=== PATIENT | female | born 1940 | race Caucasian/White ===

== ENCOUNTER 2016-11-15 10:18 | Emergency (ER) | payer OTHER ==
[~2016-11-15] VITALS: Ht 139.7 cm; Wt 48.5 kg
[2016-11-15 10:35] VITALS: BP 182/74
[2016-11-15] MEDS ORDERED: NACL 0.9% 1,000 ML IV SCH (13:03)
[2016-11-15] MEDS ORDERED: FAMOTIDINE 20 MG/2 ML VIAL IVP ONE (13:05)
[2016-11-15] MEDS ORDERED: ONDANSETRON 4 MG/2 ML VIAL IVP ONE (13:05)
[2016-11-15 13:28] LABS: BASOPHILS # (AUTO) 0.1 K/uL (0.00-0.22); BASOPHILS % (AUTO) 1.4 % (0.0-2.0); EOSINOPHILS # (AUTO) 0.2 K/uL (0-0.4); EOSINOPHILS % (AUTO) 3.5 % (0.0-4.0); HEMATOCRIT 38.8 % (36-48); LYMPHOCYTES # (AUTO) 2.3 K/uL (2.5-16.5); MEAN CORPUSCULAR HEMOGLOBIN 30 pg (27-31); MEAN CORPUSCULAR HGB CONC 34 g/dL (33-37); MEAN CORPUSCULAR VOLUME 90 fL (80-94); MONOCYTES # (AUTO) 0.7 K/uL (0.8-1.0); MONOCYTES % (AUTO) 11.3 % (1.7-9.3); NEUTROPHILS # (AUTO) 3.2 K/uL (1.8-7.7); NEUTROPHILS % (AUTO) 48.8 % (42.2-75.2); PLATELET COUNT (AUTO) 217 K/uL (140-450); RED BLOOD CELL COUNT(AUTO) 4.31 MIL/uL (4.20-5.40); RED CELL DISTRIBUTION WIDTH 13.1 % (11.6-13.7); WHITE BLOOD COUNT (AUTO) 6.5 K/uL (4.8-10.8)
[2016-11-15 13:46] LABS: ALANINE AMINOTRANSFERASE 103 U/L (12-78); ALBUMIN 3.7 g/dL (3.4-5.0); ALKALINE PHOSPHATASE 108 U/L (46-116); AMYLASE 63 U/L (25-115); ANION GAP 11.9 (8-16); ASPARTATE AMINOTRANSFERASE 87 U/L (15-37); CALCIUM 8.6 mg/dL (8.5-10.1); CARBON DIOXIDE 26.9 mmol/L (21-32); CHLORIDE 104 mmol/L (98-107); CREATININE 0.8 mg/dL (0.6-1.3); GLUCOSE 102 mg/dL (74-106); LIPASE 214 U/L (73-393); POTASSIUM 3.8 mmol/L (3.5-5.1); SODIUM SERUM 139 mmol/L (136-145); TOTAL BILIRUBIN 0.7 mg/dL (0.0-1.0); TOTAL PROTEIN, SERUM 7.6 g/dL (6.4-8.2); UREA NITROGEN, BLOOD 8 mg/dL (7-18)
[2016-11-15] MEDS ORDERED: NACL 0.9% 500 ML IV ONE (15:45)
--- NOTE | 2016-11-15 15:45 | NUR ---
PATIENT PRESENTS TO ED WITH VOMITING X2 DAYS WITH DIARRHEA AND LOSS OF APPETITE; SKIN IS PINK/WARM/DRY; AAOX4 WITH EVEN AND STEADY GAIT; LUNGS CLEAR BL; HR EVEN AND REGULAR; PT DENIES ANY FEVER, CP, SOB, OR COUGH AT THIS TIME; PATIENT STATES PAIN OF 5/10 AT THIS TIME; VSS; PATIENT POSITIONED FOR COMFORT; HOB ELEVATED; BEDRAILS UP X2; BED DOWN. ER MD MADE AWARE OF PT STATUS.
[2016-11-15] MEDS ORDERED: FAMOTIDINE 20 MG/2 ML VIAL ONE (16:20)
[2016-11-15] MEDS ORDERED: ONDANSETRON 4 MG/2 ML VIAL ONE (16:20)
[2016-11-15 17:43] LABS: APPEARANCE,URINE CLEAR (CLEAR); BILIRUBIN,URINE NEGATIVE (NEGATIVE); BLOOD, URINE NEGATIVE (NEGATIVE); COLOR,URINE YELLOW (YELLOW); LEUKOCYTE ESTERASE ,URINE TRACE (NEGATIVE); NITRITE, URINE NEGATIVE (NEGATIVE); PH,URINE 6.5 (5.0-9.0); PROTEIN,URINE NEGATIVE (NEGATIVE); UGLUCOSE NEGATIVE (NEGATIVE); UROBILINOGEN,URINE 0.2 EU/dL (0.2 - 1)
[2016-11-15 18:01] LABS: BACTERIA,URINE RARE /HPF (None Seen); RBC,URINE NONE SEEN /HPF (0-5); SQUAMOUS EPITHELIAL CELL,UR None Seen /LPF (0-3 (FEW)); WBC,URINE 0-5 (RARE) /HPF (0-5)
--- NOTE | 2016-11-15 18:09 | NUR ---
BACK FACER BILL AT BEDSIDE TAKING CHEST XRAY
--- NOTE | 2016-11-15 18:14 | NUR ---
ANGUILLAN SPEAKING PT AMBULATES TO THE RESTROOM ACCOMPANIED BY
--- NOTE | 2016-11-15 18:32 | NUR ---
Dr. Campo evaluating patient at bedside.
[2016-11-15 18:49] VITALS: BP 139/70
--- NOTE | 2016-11-15 18:49 | NUR ---
Patient discharged with v/s stable. Written and verbal after care instructions given and explained. Patient alert, oriented and verbalized understanding of instructions. Ambulatory with steady gait. All questions addressed prior to discharge. ID band removed. Patient advised to follow up with PMD. Rx of [employer] DISPOSABLE RECTAL ENEMA, ZOFRAN, COLACE given. Patient educated on indication of medication including possible reaction and side effects. Opportunity to ask questions provided and answered.
== END 2016-11-15 18:49 | disposition home or self-care (01) ==
LOC: MED 10:18
DX: K59.00 Constipation, unspecified (principal); R11.2 Nausea with vomiting, unspecified; R63.0 Anorexia; K21.9 Gastro-esophageal reflux disease without esophagitis; I10 Essential (primary) hypertension; E78.00 Pure hypercholesterolemia, unspecified
CPT/HCPCS: 36415; 74000; 80053; 81001; 82150; 83690; 85025; 96361; 96374; 96375; 99285; J2405; J3490; J7030; Q0092

== ENCOUNTER 2017-11-12 20:38 | Inpatient (IN) | payer OTHER ==
[~2017-11-12] VITALS: Ht 144.8 cm; Wt 46.7 kg
[2017-11-12 20:42] VITALS: BP 156/80
[2017-11-12] MEDS ORDERED: NITROGLYCERIN 2% 1 GM PKT TP ONE (21:35)
[2017-11-12] MEDS ORDERED: ASPIRIN 81 MG TAB.CHEW PO ONE (21:35)
[2017-11-12] MEDS ORDERED: MORPHINE SULFATE 4 MG/ML SYR IVP ONE (21:35)
[2017-11-12 22:00] LABS: BASOPHILS % (AUTO) 0.2 % (0.0-2.0); EOSINOPHILS # (AUTO) 0.1 K/uL (0-0.4); HEMATOCRIT 36.8 % (36-48); HEMOGLOBIN 12.9 g/dL (12.0-16.0); LYMPHOCYTES # (AUTO) 2.2 K/uL (2.5-16.5); LYMPHOCYTES % (AUTO) 23.3 % (20.5-51.1); MEAN CORPUSCULAR HEMOGLOBIN 30 pg (27-31); MEAN CORPUSCULAR HGB CONC 35 g/dL (33-37); MEAN CORPUSCULAR VOLUME 86.3 fL (80-94); MONOCYTES # (AUTO) 0.6 K/uL (0.8-1.0); MONOCYTES % (AUTO) 6.5 % (1.7-9.3); NEUTROPHILS # (AUTO) 6.5 K/uL (1.8-7.7); PLATELET COUNT (AUTO) 240 K/uL (140-450); RED BLOOD CELL COUNT(AUTO) 4.27 MIL/uL (4.20-5.40); RED CELL DISTRIBUTION WIDTH 13.1 % (11.6-13.7); WHITE BLOOD COUNT (AUTO) 9.4 K/uL (4.8-10.8)
[2017-11-12 22:07] LABS: ANION GAP 14.9 (8-16); CARBON DIOXIDE 25.7 mmol/L (21-32); CHLORIDE 91 mmol/L (98-107); CREATININE 0.8 mg/dL (0.6-1.3); GLUCOSE 168 mg/dL (74-106); POTASSIUM 3.6 mmol/L (3.5-5.1); SODIUM SERUM 128 mmol/L (136-145); UREA NITROGEN, BLOOD 10 mg/dL (7-18)
[2017-11-12 22:12] LABS: CHOL/HDL RATIO 4.3 (1-4.5)
[2017-11-12 22:13] LABS: ALBUMIN 3.9 g/dL (3.4-5.0); ASPARTATE AMINOTRANSFERASE 37 U/L (15-37); TOTAL BILIRUBIN 0.9 mg/dL (0.0-1.0)
[2017-11-12 22:26] LABS: CREATINE KINASE MB 1.1 ng/mL (0-3.6)
[2017-11-12] MEDS ORDERED: ONDANSETRON 4 MG/2 ML VIAL IVP PRN (23:55)
[2017-11-12] MEDS ORDERED: ACETAMINOPHEN 325 MG TAB PO PRN (23:55)
[2017-11-12] MEDS ORDERED: HYDROcodone/APAP 7.5/325 MG 1 TAB PO PRN (23:55)
[2017-11-13] MEDS ORDERED: NACL 0.9% 1,000 ML IV ONE
[2017-11-13] MEDS ORDERED: AMLO10TA PO (00:14)
[2017-11-13] MEDS ORDERED: HCTZ PO (00:14)
[2017-11-13] MEDS ORDERED: METF500T2 PO (00:14)
[2017-11-13] MEDS ORDERED: METO25TE2 PO (00:14)
[2017-11-13] MEDS ORDERED: BENAZEP PO (00:14)
[2017-11-13] MEDS ORDERED: ATOR40TA PO (00:14)
[2017-11-13] MEDS ORDERED: ATA10 PO (00:14)
[2017-11-13 00:38] LABS: PROTHROMBIN TIME 10.5 secs (10.8-13.4)
[2017-11-13 00:43] LABS: FREE T4 (FREE THYROXINE) 1.09 ng/dL (0.76-1.46); MAGNESIUM 1.7 mg/dL (1.8-2.4); PHOSPHORUS 3.5 mg/dL (2.5-4.9); THYROID STIMULATING HORMONE 0.76 uIU/mL (0.34-3.74)
[2017-11-13 00:55] VITALS: BP 153/71
[2017-11-13] MEDS ORDERED: hydrOXYzine HCL 10 MG TAB PO SCH (00:55)
[2017-11-13] MEDS ORDERED: INSULIN LISPRO SLIDING SCALE 100 UNITS/ML VIAL SUBQ PRN (01:35)
[2017-11-13] MEDS ORDERED: DEXTROSE 50% 50 ML SYR IVP PRN (01:35)
[2017-11-13] MEDS ORDERED: METOPROLOL 25 MG TAB PO ONE (02:00)
[2017-11-13 04:00] VITALS: BP 143/68
[2017-11-13 06:10] LABS: BASOPHILS % (AUTO) 0.2 % (0.0-2.0); EOSINOPHILS # (AUTO) 0.2 K/uL (0-0.4); EOSINOPHILS % (AUTO) 1.8 % (0.0-4.0); HEMATOCRIT 33.9 % (36-48); HEMOGLOBIN 11.6 g/dL (12.0-16.0); LYMPHOCYTES # (AUTO) 2.9 K/uL (2.5-16.5); LYMPHOCYTES % (AUTO) 26.5 % (20.5-51.1); MEAN CORPUSCULAR HEMOGLOBIN 30 pg (27-31); MEAN CORPUSCULAR HGB CONC 34 g/dL (33-37); MEAN CORPUSCULAR VOLUME 87.3 fL (80-94); MONOCYTES # (AUTO) 0.8 K/uL (0.8-1.0); MONOCYTES % (AUTO) 7.4 % (1.7-9.3); NEUTROPHILS # (AUTO) 7.1 K/uL (1.8-7.7); NEUTROPHILS % (AUTO) 64.1 % (42.2-75.2); PLATELET COUNT (AUTO) 235 K/uL (140-450); RED BLOOD CELL COUNT(AUTO) 3.88 MIL/uL (4.20-5.40); RED CELL DISTRIBUTION WIDTH 13.4 % (11.6-13.7); WHITE BLOOD COUNT (AUTO) 11.1 K/uL (4.8-10.8)
[2017-11-13 06:18] LABS: ANION GAP 15.2 (8-16); CARBON DIOXIDE 24.5 mmol/L (21-32); CHLORIDE 98 mmol/L (98-107); CREATININE 0.8 mg/dL (0.6-1.3); GLUCOSE 128 mg/dL (74-106); POTASSIUM 3.7 mmol/L (3.5-5.1); SODIUM SERUM 134 mmol/L (136-145); UREA NITROGEN, BLOOD 10 mg/dL (7-18)
[2017-11-13 06:22] LABS: MAGNESIUM 1.7 mg/dL (1.8-2.4); PHOSPHORUS 3.8 mg/dL (2.5-4.9)
[2017-11-13] MEDS: BLOOD GLUCOSE MONITORING 1 DEV DEV FS SCH ×4 (06:38→21:10)
[2017-11-13] MEDS ORDERED: hydrOXYzine HCL 10 MG TAB PO PRN (07:06)
[2017-11-13] MEDS ORDERED: HEPARIN PER PHARMACY MC PRN (07:45)
[2017-11-13] MEDS ORDERED: hePARIN / DEXT 5% PREMIX 250 ML IV SCH ×2 (07:45→09:00)
[2017-11-13 08:00] VITALS: BP 143/67
[2017-11-13] MEDS: amLODIPine 5 MG TAB PO SCH (09:23)
[2017-11-13] MEDS: BENAZEPRIL 20 MG TAB PO SCH (09:24)
[2017-11-13] MEDS: ECOTRIN 81 MG TABEC PO SCH (09:24)
[2017-11-13] MEDS: DOCUSATE SODIUM 100 MG GELCAP PO SCH ×2 (09:24→20:37)
[2017-11-13] MEDS: metFORMIN 500 MG TAB PO SCH ×2 (09:24→16:30)
[2017-11-13] MEDS: METOPROLOL SUCCINATE 50 MG TABER PO SCH (09:50)
[2017-11-13 12:00] VITALS: BP 135/68
[2017-11-13 16:00] VITALS: BP 133/61
[2017-11-13 17:28] LABS: PROTHROMBIN TIME 10.6 secs (10.8-13.4)
[2017-11-13 20:14] VITALS: BP 140/68
[2017-11-13] MEDS ORDERED: ATORVASTATIN 20 MG TAB PO SCH (21:00)
[2017-11-14 00:20] VITALS: BP 115/50
[2017-11-14 04:52] VITALS: BP 111/52
[2017-11-14] MEDS: BLOOD GLUCOSE MONITORING 1 DEV DEV FS SCH ×2 (05:24→11:30)
[2017-11-14 08:00] VITALS: BP 139/64
[2017-11-14] MEDS: metFORMIN 500 MG TAB PO SCH (08:08)
[2017-11-14] MEDS: BENAZEPRIL 20 MG TAB PO SCH (08:08)
[2017-11-14] MEDS: amLODIPine 5 MG TAB PO SCH (08:09)
[2017-11-14] MEDS: ECOTRIN 81 MG TABEC PO SCH (08:09)
[2017-11-14] MEDS: DOCUSATE SODIUM 100 MG GELCAP PO SCH (08:09)
[2017-11-14] MEDS: METOPROLOL SUCCINATE 50 MG TABER PO SCH (08:10)
[2017-11-14 08:37] LABS: BASOPHILS % (AUTO) 0.3 % (0.0-2.0); EOSINOPHILS # (AUTO) 0.4 K/uL (0-0.4); EOSINOPHILS % (AUTO) 3.8 % (0.0-4.0); HEMATOCRIT 36.5 % (36-48); HEMOGLOBIN 12.4 g/dL (12.0-16.0); LYMPHOCYTES # (AUTO) 3.1 K/uL (2.5-16.5); LYMPHOCYTES % (AUTO) 33.3 % (20.5-51.1); MEAN CORPUSCULAR HEMOGLOBIN 30 pg (27-31); MEAN CORPUSCULAR HGB CONC 34 g/dL (33-37); MEAN CORPUSCULAR VOLUME 88.3 fL (80-94); MONOCYTES # (AUTO) 0.6 K/uL (0.8-1.0); MONOCYTES % (AUTO) 6.9 % (1.7-9.3); NEUTROPHILS # (AUTO) 5.2 K/uL (1.8-7.7); NEUTROPHILS % (AUTO) 55.7 % (42.2-75.2); PLATELET COUNT (AUTO) 241 K/uL (140-450); RED BLOOD CELL COUNT(AUTO) 4.13 MIL/uL (4.20-5.40); RED CELL DISTRIBUTION WIDTH 13.1 % (11.6-13.7); WHITE BLOOD COUNT (AUTO) 9.4 K/uL (4.8-10.8)
[2017-11-14 09:08] LABS: ANION GAP 14.5 (8-16); CARBON DIOXIDE 25.2 mmol/L (21-32); CHLORIDE 101 mmol/L (98-107); CREATININE 0.8 mg/dL (0.6-1.3); GLUCOSE 133 mg/dL (74-106); POTASSIUM 3.7 mmol/L (3.5-5.1); SODIUM SERUM 137 mmol/L (136-145); UREA NITROGEN, BLOOD 11 mg/dL (7-18)
[2017-11-14 09:28] LABS: PHOSPHORUS 3.6 mg/dL (2.5-4.9)
[2017-11-14] MEDS ORDERED: ASPI-1173 PO (11:20)
[2017-11-14 12:00] VITALS: BP 116/54
== END 2017-11-14 14:30 | disposition home or self-care (01) | DRG 309 ==
LOC: MED 20:38 → MTU 23:58
PROVIDERS: ADMIT Family Medicine Sports Medicine; ATTEND Family Medicine Sports Medicine
DX: R00.2 Palpitations (principal); D68.59 Other primary thrombophilia; E11.51 Type 2 diabetes mellitus with diabetic peripheral angiopathy without gangrene; E87.1 Hypo-osmolality and hyponatremia; E11.65 Type 2 diabetes mellitus with hyperglycemia; I10 Essential (primary) hypertension; E78.5 Hyperlipidemia, unspecified; K21.9 Gastro-esophageal reflux disease without esophagitis; K59.00 Constipation, unspecified; Z79.4 Long term (current) use of insulin; R07.9 Chest pain, unspecified
CPT/HCPCS: 36415; 71045; 80048; 80053; 82150; 82550; 82553; 82948; 83036; 83690; 83735; 83880; 84100; 84439; 84443; 84484; 85025; 85379; 85610; 85730; 87081; 93005; 93925; 93970; 99285; J1644; J1815; Q0092

== ENCOUNTER 2018-10-11 19:35 | Inpatient (IN) | payer OTHER ==
[~2018-10-11] VITALS: Ht 142.2 cm; Wt 51.3 kg
[~2018-10-11 19:35] MED LIST: AMLO10TA PO; ASPI-1173 PO; ATA10 PO; ATOR40TA PO; BENAZEP PO; HCTZ PO; METF500T2 PO; METO25TE2 PO
[2018-10-11 19:49] VITALS: BP 153/103
[2018-10-11] MEDS ORDERED: BENA40TA PO (19:53)
--- NOTE | 2018-10-11 19:55 | NUR ---
TO ER BED 4
--- NOTE | 2018-10-11 19:55 | NUR ---
PT PRESENTS TO ED WITH STERNAL CHEST PAIN X12 HRS. PRESSURE, 6/10 PAIN. VSS. A&OX4. POSITIONED IN BED WITH HOB ELEVATED. NO N/V, NO SOB/DYSPNEA. ER MD AWARE. CONTINUE TO MONITOR.
[2018-10-11] MEDS ORDERED: NITROGLYCERIN 2% 1 GM PKT TP ONE (20:10)
[2018-10-11] MEDS ORDERED: METOPROLOL 25 MG TAB PO ONE (20:10)
[2018-10-11] MEDS ORDERED: ASPIRIN 81 MG TAB.CHEW PO ONE (20:10)
[2018-10-11] MEDS ORDERED: MORPHINE SULFATE 4 MG/ML SYR IVP ONE (20:25)
[2018-10-11 20:29] LABS: BASOPHILS % (AUTO) 0.2 % (0.0-2.0); EOSINOPHILS # (AUTO) 0.3 K/uL (0-0.4); EOSINOPHILS % (AUTO) 3.8 % (0.0-4.0); HEMATOCRIT 34.8 % (36-48); LYMPHOCYTES # (AUTO) 2.8 K/uL (2.5-16.5); LYMPHOCYTES % (AUTO) 33.7 % (20.5-51.1); MEAN CORPUSCULAR HEMOGLOBIN 31 pg (27-31); MEAN CORPUSCULAR HGB CONC 34 g/dL (33-37); MEAN CORPUSCULAR VOLUME 89.8 fL (80-94); MONOCYTES # (AUTO) 0.5 K/uL (0.8-1.0); MONOCYTES % (AUTO) 5.7 % (1.7-9.3); NEUTROPHILS # (AUTO) 4.6 K/uL (1.8-7.7); NEUTROPHILS % (AUTO) 56.6 % (42.2-75.2); PLATELET COUNT (AUTO) 239 K/uL (140-450); RED BLOOD CELL COUNT(AUTO) 3.88 MIL/uL (4.20-5.40); WHITE BLOOD COUNT (AUTO) 8.2 K/uL (4.8-10.8)
[2018-10-11 20:44] LABS: ANION GAP 14.3 (8-16); CARBON DIOXIDE 24.7 mmol/L (21-32); CHLORIDE 102 mmol/L (98-107); CREATININE 0.8 mg/dL (0.6-1.3); GLUCOSE 121 mg/dL (74-106); SODIUM SERUM 137 mmol/L (136-145); UREA NITROGEN, BLOOD 16 mg/dL (7-18)
[2018-10-11 20:56] LABS: ALBUMIN 3.8 g/dL (3.4-5.0); ASPARTATE AMINOTRANSFERASE 33 U/L (15-37); TOTAL BILIRUBIN 0.6 mg/dL (0.0-1.0)
[2018-10-11] MEDS ORDERED: ENOXAPARIN 60 MG/0.6 ML SYR SUBQ ONE (21:55)
[2018-10-11] MEDS ORDERED: NACL 0.9% 1,000 ML IV ONE (22:15)
[2018-10-11] MEDS ORDERED: MORPHINE SULFATE 2 MG/ML SYR IVP PRN (22:25)
[2018-10-11] MEDS ORDERED: ACETAMINOPHEN 325 MG TAB PO PRN (22:25)
[2018-10-11] MEDS ORDERED: ONDANSETRON 4 MG/2 ML VIAL IM/IVP PRN (22:25)
[2018-10-11] MEDS ORDERED: DOCUSATE SODIUM 100 MG GELCAP PO PRN (22:25)
[2018-10-11] MEDS ORDERED: HYDROcodone/APAP 7.5/325 MG 1 TAB PO PRN (22:25)
[2018-10-11 22:50] VITALS: BP 159/48
--- NOTE | 2018-10-11 22:50 | NUR ---
PT RECEIVED FROM ER VIA MUKUND, AWAKE, OX 4, WITH SOME EPISODES OF FORGETFULNESS. AMBULATORY. IRAQI SPEAKING. ACCOMPANIED BY SON, JESUS AND .TELE. PT . DX: NSTEMI, ELEVATED TROPONIN. WITH R AC G 20 INFUSING NS AT 100ML/HR, PATENT. ORIENTED TO UNIT. PLACED IN LOW BED. CALL LIGHT WITHIN REACH. WILL MONITOR
--- NOTE | 2018-10-11 22:50 | NUR ---
REPORT GIVEN AND CARE TRANSFERED TO [facility] ROOM 107A. TRANSFERED VIA RNEY WITH VSS.
[2018-10-11 22:51] LABS: PROTHROMBIN TIME 9.8 secs (10.8-13.4)
[2018-10-11 22:53] LABS: MAGNESIUM 1.9 mg/dL (1.8-2.4); PHOSPHORUS 3.8 mg/dL (2.5-4.9); THYROID STIMULATING HORMONE 0.92 uIU/mL (0.34-3.74)
[2018-10-11] MEDS: NACL 0.9% 1,000 ML IV SCH (23:47)
[2018-10-12] VITALS: BP 135/50
[2018-10-12] MEDS ORDERED: HEPARIN PER PHARMACY MC PRN
[2018-10-12] MEDS ORDERED: NITROGLYCERIN 0.4 MG TAB SL PRN
--- NOTE | 2018-10-12 | NUR ---
PT INTERVIEWED WITH JESUS,SON OF PT PLASTIC SURGERY TECHNICIAN. PT SKIN ASSSESSMENT DONE, INTACT
[2018-10-12] MEDS ORDERED: METO50TE2 PO (00:04)
[2018-10-12] MEDS ORDERED: INSULIN LISPRO SLIDING SCALE 100 UNITS/ML VIAL SUBQ PRN (00:05)
[2018-10-12] MEDS ORDERED: DEXTROSE 50% 50 ML SYR IVP PRN (00:05)
--- NOTE | 2018-10-12 02:33 | NUR ---
PT SLEEPING, NO S/S/X'S OF CHEST PAIN
[2018-10-12 04:00] VITALS: BP 135/58
--- NOTE | 2018-10-12 04:56 | NUR ---
PT WENT TO BATHROOM, AMBULATORY WITH ASSIST, VOIDED X1 URINE, CLEAR YELLOW URINE. PT PLACED ON SCD DEVICE AFTER ON BED.
[2018-10-12 06:29] LABS: ANION GAP 11.7 (8-16); CARBON DIOXIDE 26.4 mmol/L (21-32); CHLORIDE 106 mmol/L (98-107); CREATININE 0.9 mg/dL (0.6-1.3); GLUCOSE 94 mg/dL (74-106); POTASSIUM 4.1 mmol/L (3.5-5.1); SODIUM SERUM 140 mmol/L (136-145); UREA NITROGEN, BLOOD 14 mg/dL (7-18)
[2018-10-12 06:31] LABS: APPEARANCE,URINE CLEAR (CLEAR); BILIRUBIN,URINE NEGATIVE (NEGATIVE); BLOOD, URINE NEGATIVE (NEGATIVE); COLOR,URINE YELLOW (YELLOW); LEUKOCYTE ESTERASE ,URINE NEGATIVE (NEGATIVE); NITRITE, URINE NEGATIVE (NEGATIVE); PH,URINE 6.5 (5.0-9.0); UGLUCOSE NEGATIVE (NEGATIVE)
[2018-10-12 06:36] LABS: BASOPHILS % (AUTO) 0.2 % (0.0-2.0); EOSINOPHILS # (AUTO) 0.4 K/uL (0-0.4); EOSINOPHILS % (AUTO) 5.4 % (0.0-4.0); HEMATOCRIT 30.7 % (36-48); HEMOGLOBIN 10.6 g/dL (12.0-16.0); LYMPHOCYTES # (AUTO) 2.9 K/uL (2.5-16.5); LYMPHOCYTES % (AUTO) 41.8 % (20.5-51.1); MEAN CORPUSCULAR HEMOGLOBIN 31 pg (27-31); MEAN CORPUSCULAR HGB CONC 34 g/dL (33-37); MEAN CORPUSCULAR VOLUME 90.1 fL (80-94); MONOCYTES # (AUTO) 0.5 K/uL (0.8-1.0); NEUTROPHILS # (AUTO) 3.2 K/uL (1.8-7.7); NEUTROPHILS % (AUTO) 45.6 % (42.2-75.2); PLATELET COUNT (AUTO) 194 K/uL (140-450); RED BLOOD CELL COUNT(AUTO) 3.41 MIL/uL (4.20-5.40); RED CELL DISTRIBUTION WIDTH 13.9 % (11.6-13.7)
[2018-10-12 06:41] LABS: MAGNESIUM 1.7 mg/dL (1.8-2.4); PHOSPHORUS 3.6 mg/dL (2.5-4.9)
[2018-10-12] MEDS: BLOOD GLUCOSE MONITORING 1 DEV DEV FS SCH ×4 (06:56→20:30)
--- NOTE | 2018-10-12 06:58 | NUR ---
WILL ENDORSE TO NEXT SHIFT FOR CONTINUITY OF CARE. PT IN STABLE CONDITION AT THIS TIME
--- NOTE | 2018-10-12 07:15 | NUR ---
RECEIVED A CALL FROM LAB THROUGH CHARGE NURSE NEW TROP I LEVEL. WILL INFORM THROUGH AM SHIFT NURSE.
--- NOTE | 2018-10-12 07:20 | NUR ---
RECEIVED BEDSIDE REPORT FROM LIBRARY AIDE NURSE. PT IS AOX4. IRISH SPEAKING. DENIES PAIN AND SOB. ABLE TO FOLLOW SIMPLE COMMANDS AND MAKE NEEDS KNOWN. RESPIRATION IS EVEN AND UNLABORED. NO SIGNS OF DISTRESS NOTED. IV ON L AC 20 G, PATENT AND ASYMPTOMATIC, INFUSING PER MD ORDER. IV SITE CLEAN AND DRY. SKIN INTACT AND CLEAN. ABLE TO AMBULATE FROM BED TO BATHROOM WITH STANDBY ASSISTANCE. DISCUSSED PLAN OF CARE WITH PATIENT, PATIENT NODDED HER HEAD. SEQUENTIAL COMPRESSION DEVICE IN PLACE. SAFETY MEASURES IN PLACE. BED IN LOW POSITION, CALL LIGHT WITHIN REACH.
[2018-10-12 08:00] VITALS: BP 117/52
--- NOTE | 2018-10-12 08:01 | NUR ---
PATIENT HAS BEEN SCREENED AND CATEGORIZED MODERATE NUTRITION RISK. PATIENT WILL BE SEEN WITHIN 3-5 DAYS OF ADMISSION. 10/14/[address]
[2018-10-12] MEDS: metFORMIN 500 MG TAB PO SCH ×2 (08:46→17:20)
[2018-10-12] MEDS: METOPROLOL SUCCINATE 50 MG TABER PO SCH (08:47)
[2018-10-12] MEDS: ASPIRIN 81 MG TAB.CHEW PO SCH (08:47)
[2018-10-12] MEDS: BENAZEPRIL 20 MG TAB PO SCH (08:47)
[2018-10-12] MEDS: NACL 0.9% 1,000 ML IV SCH ×2 (08:48→19:03)
--- NOTE | 2018-10-12 08:53 | NUR ---
ADMINISTERED MEDS PER MD ORDER. PT TOLERATED WELL. SON JESUS AND ARE AT BEDSIDE. NO SIGNS OF DISTRESS NOTED. PT DENIES CHEST PAIN AND SOB.
[2018-10-12] MEDS ORDERED: MAG SULF 2000 MG/WATER PREMIX 50 ML IV SCH (09:00)
[2018-10-12 09:11] LABS: CHOL/HDL RATIO 3.3 (1-4.5)
[2018-10-12] MEDS: ASCORBIC ACID 500 MG TAB PO SCH (09:31)
--- NOTE | 2018-10-12 09:37 | NUR ---
ADMINISTERED MG IVPB PER MD ORDER. MG LEVEL IS 1.7 FROM AM LAB. ANDREW IS AT BEDSIDE. PT DENIES PAIN AND SOB. NO SIGNS OF DISTRESS NOTED.
[2018-10-12] MEDS ORDERED: hePARIN / DEXT 5% PREMIX 250 ML IV SCH ×2 (10:00)
--- NOTE | 2018-10-12 10:58 | NUR ---
CM NOTE I SPOKE WITH PILO TO SET UP PATIENT'S OUTPATIENT FOLLOW UP APPOINTMENT # [phone]. PER PILO, THE PATIENT SEES DR. MARION CONLEY IN THE CLINIC. PER PILO, THE PATIENT TO SEE DR. CONLEY ON OCTOBER 18, 2018 AT 8:40 AM AT THE CLINIC AT [address] [phone]. I GAVE THE PATIENT HER OUTPATIENT FOLLOW UP SCHEDULE.
--- NOTE | 2018-10-12 11:46 | NUR ---
ASSISTED PATIENT TO USED THE BATHROOM AND GOT BACK ON BED. NO SIGNS OF DISTRESS NOTED. SAFETY MEASURES IN PLACE.
[2018-10-12 12:00] VITALS: BP 135/58
--- NOTE | 2018-10-12 14:37 | NUR ---
PT C/O HEADACHE PAIN LEVEL 3/10, ADMINISTERED PRN ACETAMINOPHEN.
--- NOTE | 2018-10-12 15:20 | NUR ---
PT IS SLEEPING ON BED AT THIS TIME. NO SIGNS OF DISTRESS NOTED.
--- NOTE | 2018-10-12 15:46 | NUR ---
RECEIVED A CRITICAL LAB FROM TROPONIN I 0.122. NOTIFIED.
[2018-10-12 16:00] VITALS: BP 136/57
--- NOTE | 2018-10-12 17:21 | NUR ---
ADMINISTERED MED PER MD ORDER, PT TOLERATED WELL. LATHA DUKES IS AT BEDSIDE. PT DENIES PAIN AND SOB. NO SIGNS OF DISTRESS NOTED.
--- NOTE | 2018-10-12 19:10 | NUR ---
ENDORSED PATIENT AT BEDSIDE TO GASTROENTEROLOGY NURSE PRACTITIONER NURSE FOR CONTINUITY OF CARE. PATIENT IS IN STABLE CONDITION.
--- NOTE | 2018-10-12 19:30 | NUR ---
PATIENT AWAKE, ALERT, RESPIRATION EVEN UNLABORED ON ROOM AIR. DENIES PAIN. SKIN IS WARM AND DRY. IV PATENT AND INTACT. FAMILY AT BEDSIDE. PLAN OF CARE WAS DISCUSSED. ALL SAFETY MEASURES ARE IN PLACE. BED IS AT LOW POSITION. CALL LIGHT WITHIN REACH.
[2018-10-12 20:00] VITALS: BP 147/58
--- NOTE | 2018-10-12 20:19 | NUR ---
INITIAL ASSESSMENT DONE. VITALS WERE TAKEN. ALL DUE MEDS WERE GIVEN PER ORDER. NO ASE NOTED. CALL LIGHT WITHIN REACH. WILL CONTINUE TO MONITOR
[2018-10-12] MEDS ORDERED: ATORVASTATIN 20 MG TAB PO SCH (21:00)
--- NOTE | 2018-10-12 22:30 | NUR ---
PATIENT WATCHING TV WITH FAMILY AT THE BEDSIDE. NO DISTRESS NOTED. CALL LIGHT WITHIN REACH. WILL CONTINUE TO MONITOR.
[2018-10-13] VITALS: BP 134/60
--- NOTE | 2018-10-13 | NUR ---
VITALS WERE TAKEN. NO DISTRESS NOTED. PATIENT STABLE. CALL LIGHT WITHIN REACH. WILL CONTINUE TO MONITOR
--- NOTE | 2018-10-13 02:00 | NUR ---
CHECKED PATIENT. PATIENT SLEEPING RESPIRATION EVEN UNLABORED ON ROOM AIR. NO DISTRESS NOTED. CALL LIGHT WITHIN REACH. WILL CONTINUE TO MONITOR
[2018-10-13 04:00] VITALS: BP 148/64
--- NOTE | 2018-10-13 04:00 | NUR ---
CHECKED PATIENT. VITALS WERE TAKEN. PATIENT SLEEPING NO DISTRESS NOTED. CALL LIGHT WITHIN REACH. WILL CONTINUE TO MONITOR
[2018-10-13] MEDS: NACL 0.9% 1,000 ML IV SCH (04:21)
[2018-10-13] MEDS: BLOOD GLUCOSE MONITORING 1 DEV DEV FS SCH (06:02)
[2018-10-13 06:42] LABS: BASOPHILS % (AUTO) 0.2 % (0.0-2.0); EOSINOPHILS # (AUTO) 0.4 K/uL (0-0.4); EOSINOPHILS % (AUTO) 7.2 % (0.0-4.0); HEMATOCRIT 31.5 % (36-48); HEMOGLOBIN 10.8 g/dL (12.0-16.0); LYMPHOCYTES # (AUTO) 2.2 K/uL (2.5-16.5); LYMPHOCYTES % (AUTO) 38.2 % (20.5-51.1); MEAN CORPUSCULAR HEMOGLOBIN 31 pg (27-31); MEAN CORPUSCULAR HGB CONC 34 g/dL (33-37); MEAN CORPUSCULAR VOLUME 90.6 fL (80-94); MONOCYTES # (AUTO) 0.4 K/uL (0.8-1.0); MONOCYTES % (AUTO) 6.7 % (1.7-9.3); NEUTROPHILS # (AUTO) 2.7 K/uL (1.8-7.7); NEUTROPHILS % (AUTO) 47.7 % (42.2-75.2); PLATELET COUNT (AUTO) 182 K/uL (140-450); RED BLOOD CELL COUNT(AUTO) 3.48 MIL/uL (4.20-5.40); RED CELL DISTRIBUTION WIDTH 13.9 % (11.6-13.7); WHITE BLOOD COUNT (AUTO) 5.8 K/uL (4.8-10.8)
[2018-10-13 06:52] LABS: ANION GAP 11.4 (8-16); CARBON DIOXIDE 25.3 mmol/L (21-32); CHLORIDE 109 mmol/L (98-107); CREATININE 0.8 mg/dL (0.6-1.3); GLUCOSE 90 mg/dL (74-106); POTASSIUM 3.7 mmol/L (3.5-5.1); SODIUM SERUM 142 mmol/L (136-145); UREA NITROGEN, BLOOD 10 mg/dL (7-18)
[2018-10-13 06:54] LABS: MAGNESIUM 2.1 mg/dL (1.8-2.4); PHOSPHORUS 3.3 mg/dL (2.5-4.9)
--- NOTE | 2018-10-13 07:28 | NUR ---
ENDORSED PATIENT TO DAY SHIFT NURSE FOR CONTINUITY OF CARE. PATIENT STABLE AT THIS TIME.
--- NOTE | 2018-10-13 07:32 | NUR ---
RECEIVED BEDSIDE REPORT FROM ESTIMATE CLERK RN FOR CONTINUITY OF CARE. PT IN STABLE CONDITION. AOX4. DENIES PAIN AND DISCOMFORT. DENIES CP, N/V, EXCESSIVE FATIGUE, DIZZINESS, LIGHTHEADEDNESS. NO S/S DISTRESS. RESPIRATIONS EVEN AND UNLABORED. ACTIVE BS IN ALL QUADRANTS. ABDOMEN SOFT AND NON-DISTENDED. SKIN INTACT. PT IS AMBULATORY PER ESTIMATE CLERK RN. IV SITE PATENT AND ASYMPTOMATIC, INFUSING IVF PER MD ORDERS. ALL SAFETY PRECAUTIONS IN PLACE, WILL CONTINUE TO MONITOR.
--- NOTE | 2018-10-13 07:55 | NUR ---
NOTIFIED DR. CARRANZA OF CRITICAL TROPONIN 0.120. PER , NO CHANGE IN PLANS FOR D/C TODAY- PT CLEARED BY PARADICHLOROBENZENE MACHINE OPERATOR.
[2018-10-13 08:00] VITALS: BP 164/61
[2018-10-13] MEDS ORDERED: FERROUS SULFATE 325 MG TABEC PO SCH (08:00)
[2018-10-13 08:24] LABS: FOLIC ACID 13.2 ng/mL (>3.0)
[2018-10-13] MEDS: metFORMIN 500 MG TAB PO SCH (09:01)
[2018-10-13] MEDS: ASCORBIC ACID 500 MG TAB PO SCH (09:01)
[2018-10-13] MEDS: ASPIRIN 81 MG TAB.CHEW PO SCH (09:01)
[2018-10-13] MEDS: METOPROLOL SUCCINATE 50 MG TABER PO SCH (09:01)
[2018-10-13] MEDS: BENAZEPRIL 20 MG TAB PO SCH (09:02)
--- NOTE | 2018-10-13 09:07 | NUR ---
PATIENT AWARE OF PLANS FOR D/C TODAY. STATES SHE HAS SPOKE WITH FAMILY AND THEY WILL COME PICK HER UP AT "AROUND 11AM".
--- NOTE | 2018-10-13 10:33 | NUR ---
CALLED SON ERNST. HE IS AWARE OF D/C. STATES HIS BROTHER WILL ASSOCIATE PROFESSOR OF PATHOLOGY PATIENT AROUND 11 AM TODAY.
--- NOTE | 2018-10-13 11:35 | NUR ---
DISCHARGE PAPERWORK, INCLUDING INSTRUCTIONS TO F/U WITH PCP EMIR AND BIBLE WORKER WITHIN ONE WEEK, GIVEN TO PATIENT. MEDICATION RECONCILIATION TEACHING GIVEN TO PATIENT. FLU VACCINE AND PNEUMOVAX UP TO DATE. IV SITE REMOVED WITH MINIMAL BLOOD LOSS AND LUMEN COMPLETELY INTACT. ID BANDS REMOVED. ALL PERSONAL BELONGINGS ARE WITH PATIENT. PT IN STABLE CONDITION. PATIENT TO GO HOME WITH FAMILY MEMBER VIA PRIVATE VEHICLE. D/T TEACHING GIVEN UTILIZING AERONAUTICS COMMISSION DIRECTOR #[id number].
--- NOTE | 2018-10-18 07:04 | NUR ---
LATE CHARTING FOR 10/11/18 PT GIVEN MORPHINE 1MG IVP. PULLED 4MG VIAL. WHILE IN PIXIS, ACCIDENTALLY INPUT THAT 4MG WOULD BE GIVEN. 1MG ORDERED AND 1MG GIVEN. REMAINING 3MG WASTED. 1MG MORPHINE GIVEN AT 2049 TO 2051
[2019-03-03] MEDS ORDERED: ORE25 PO (23:52)
== END 2018-10-13 11:35 | disposition home or self-care (01) | DRG 282 ==
LOC: MED 19:35 → MTU 22:22
PROVIDERS: ADMIT General Practice; ATTEND General Practice
DX: I21.A1 Myocardial infarction type 2 (principal); E11.65 Type 2 diabetes mellitus with hyperglycemia; D64.9 Anemia, unspecified; E83.42 Hypomagnesemia; K21.9 Gastro-esophageal reflux disease without esophagitis; I10 Essential (primary) hypertension; E11.51 Type 2 diabetes mellitus with diabetic peripheral angiopathy without gangrene; Z79.82 Long term (current) use of aspirin; Z79.84 Long term (current) use of oral hypoglycemic drugs; Z79.899 Other long term (current) drug therapy; Z91.14 Patient's other noncompliance with medication regimen
CPT/HCPCS: 36415; 71045; 80048; 80053; 81003; 82150; 82607; 82728; 82746; 82948; 83036; 83540; 83690; 83735; 83880; 84100; 84443; 84484; 85025; 85045; 85610; 85730; 87081; 93005; 96372; 96374; 99285; J1644; J1650; J1815; J2270; J3475; J7030; Q0092

== ENCOUNTER 2019-02-14 16:50 | Emergency (ER) | payer OTHER ==
[~2019-02-14] VITALS: Ht 144.8 cm; Wt 54.4 kg
[~2019-02-14 16:50] MED LIST changes: -AMLO10TA PO; -ATA10 PO; +BENA40TA PO; -BENAZEP PO; -HCTZ PO; -METO25TE2 PO; +METO50TE2 PO
--- NOTE | 2019-02-14 17:01 | NUR ---
PATIENT AMBULATED TO BED 3 AT THIS TIME.
[2019-02-14 17:07] VITALS: BP 167/86
--- NOTE | 2019-02-14 17:19 | NUR ---
DR LOPES AT BEDSIDE
--- NOTE | 2019-02-14 17:27 | NUR ---
78 Y FEMALE ACCOMPANIED BY SPOUSE AND SON C/O INTERMITTENT POSTERIOR LEFT SHOULDER PAIN RADIATING ANTERIOR, DOWN LUE SORENESS TYPE PAIN X 1 WK. DENIES RECENT INJURY, FULL ROM--+2 RADIAL PULSE <3 SEC CAP REFILL. BP 167/86. TACHY AT 102. AA0X4. BED IS DOWN, LOCKED, BED RAIL X 1, ERMD TO SEE PT. HX---CAD, HTN, HYPERLIPIDEMIA, DM RX----HCTZ, BENAZEPRIL, ATORVASTATIN, TYLENOL, METOPROLOL
--- NOTE | 2019-02-14 17:32 | NUR ---
PT AND FAMILY TELUGU SPEAKING ONLY. TARA IN TRIAGE GAVE REPORT
[2019-02-14] MEDS ORDERED: KETOROLAC 60 MG/2 ML VIAL IM ONE (18:10)
[2019-02-14 18:44] VITALS: BP 165/71
--- NOTE | 2019-02-14 18:44 | NUR ---
Patient discharged with v/s stable. Written and verbal after care instructions given and explained. Patient alert, oriented and verbalized understanding of instructions. Ambulatory with steady gait. All questions addressed prior to discharge. ID band removed. Patient advised to follow up with PMD. Rx of MOTRIN AND NORCO given. Patient educated on indication of medication including possible reaction and side effects. Opportunity to ask questions provided and answered. LAN VELAZQUEZ TRANSLATED TO SCOTTISH
[2019-03-03] MEDS ORDERED: ORE25 PO (23:52)
== END 2019-02-14 18:44 | disposition home or self-care (01) ==
LOC: MED 16:50
DX: R07.89 Other chest pain (principal); M25.512 Pain in left shoulder; E11.9 Type 2 diabetes mellitus without complications; K21.9 Gastro-esophageal reflux disease without esophagitis; I10 Essential (primary) hypertension; Z79.82 Long term (current) use of aspirin; Z79.84 Long term (current) use of oral hypoglycemic drugs; Z79.899 Other long term (current) drug therapy
CPT/HCPCS: 71045; 82948; 93005; 96372; 99283; J1885; Q0092

== ENCOUNTER 2019-03-10 14:50 | Inpatient (IN) | payer OTHER ==
[~2019-03-10] VITALS: Ht 139.7 cm; Wt 50.8 kg
[2019-03-10 15:01] VITALS: BP 175/86
--- NOTE | 2019-03-10 15:05 | NUR ---
Patient to bed 8. RN evaluating patient at bedside.
[2019-03-10] MEDS ORDERED: NACL 0.9% 500 ML IV SCH (15:11)
[2019-03-10] MEDS ORDERED: ASPIRIN 81 MG TAB.CHEW PO ONE ×2 (15:15→16:15)
--- NOTE | 2019-03-10 15:26 | NUR ---
batch room technician at bedside.
--- NOTE | 2019-03-10 15:30 | NUR ---
PT C/O CHST PAIN RADIATING TO BACK X 6 DAYS. DENIES N/V/D; SKIN IS PINK/WARM/DRY; AAOX3 WITH EVEN AND STEADY GAIT; LUNGS CLEAR BL; HR EVEN AND REGULAR; PT DENIES ANY FEVER, SOB, OR COUGH AT THIS TIME; PATIENT STATES PAIN OF 5/10 AT THIS TIME; VSS; PATIENT POSITIONED FOR COMFORT; HOB ELEVATED; BEDRAILS UP X1; BED DOWN. ER MD MADE AWARE OF PT STATUS.
[2019-03-10 15:38] LABS: BASOPHILS % (AUTO) 0.2 % (0.0-2.0); EOSINOPHILS # (AUTO) 0.1 K/uL (0-0.4); EOSINOPHILS % (AUTO) 1.9 % (0.0-4.0); HEMATOCRIT 35.4 % (36-48); HEMOGLOBIN 11.9 g/dL (12.0-16.0); LYMPHOCYTES # (AUTO) 2.3 K/uL (2.5-16.5); MEAN CORPUSCULAR HEMOGLOBIN 31 pg (27-31); MEAN CORPUSCULAR HGB CONC 34 g/dL (33-37); MEAN CORPUSCULAR VOLUME 90.9 fL (80-94); MONOCYTES # (AUTO) 0.6 K/uL (0.8-1.0); MONOCYTES % (AUTO) 7.7 % (1.7-9.3); NEUTROPHILS # (AUTO) 4.6 K/uL (1.8-7.7); NEUTROPHILS % (AUTO) 60.2 % (42.2-75.2); PLATELET COUNT (AUTO) 236 K/uL (140-450); RED BLOOD CELL COUNT(AUTO) 3.89 MIL/uL (4.20-5.40); RED CELL DISTRIBUTION WIDTH 14.3 % (11.6-13.7); WHITE BLOOD COUNT (AUTO) 7.6 K/uL (4.8-10.8)
--- NOTE | 2019-03-10 15:40 | NUR ---
PT'S BP IS 180/[address] DAILEY NOTIFIED.
[2019-03-10 15:59] LABS: ANION GAP 13.7 (8-16); CARBON DIOXIDE 23.8 mmol/L (21-32); CHLORIDE 101 mmol/L (98-107); GLUCOSE 119 mg/dL (74-106); POTASSIUM 3.5 mmol/L (3.5-5.1); SODIUM SERUM 135 mmol/L (136-145); UREA NITROGEN, BLOOD 18 mg/dL (7-18)
[2019-03-10 16:00] LABS: PROTHROMBIN TIME 9.6 secs (10.8-13.4)
[2019-03-10 16:13] LABS: ALBUMIN 3.5 g/dL (3.4-5.0); ASPARTATE AMINOTRANSFERASE 23 U/L (15-37); TOTAL BILIRUBIN 0.5 mg/dL (0.0-1.0)
--- NOTE | 2019-03-10 17:00 | NUR ---
PT IS RESTING IN BED WITH EYES OPEN.
[2019-03-10 17:26] LABS: APPEARANCE,URINE CLEAR (CLEAR); BILIRUBIN,URINE NEGATIVE (NEGATIVE); BLOOD, URINE NEGATIVE (NEGATIVE); LEUKOCYTE ESTERASE ,URINE NEGATIVE (NEGATIVE); NITRITE, URINE NEGATIVE (NEGATIVE); UGLUCOSE NEGATIVE (NEGATIVE)
[2019-03-10 17:27] LABS: COLOR,URINE PALE YELLOW (YELLOW)
[2019-03-10] MEDS ORDERED: ONDANSETRON 4 MG/2 ML VIAL IM/IVP PRN (17:35)
[2019-03-10] MEDS ORDERED: HYDROcodone/APAP 7.5/325 MG 1 TAB PO PRN (17:35)
[2019-03-10] MEDS ORDERED: MORPHINE SULFATE 2 MG/ML SYR IVP PRN (17:35)
[2019-03-10] MEDS ORDERED: DOCUSATE SODIUM 100 MG GELCAP PO PRN (17:35)
[2019-03-10 18:21] LABS: CHOL/HDL RATIO 3.5 (1-4.5); FREE T4 (FREE THYROXINE) 1.3 ng/dL (0.76-1.46); MAGNESIUM 1.9 mg/dL (1.8-2.4); PHOSPHORUS 3.5 mg/dL (2.5-4.9); THYROID STIMULATING HORMONE 0.46 uIU/mL (0.34-3.74)
--- NOTE | 2019-03-10 18:30 | NUR ---
Patient will be admitted to care of CHEST PAIN. Admited to TELEMETRY. Will go to room 122A. Belongings list completed. Report to MAURISIO BOWLING.
[2019-03-10] MEDS ORDERED: KETOROLAC 30 MG/ML VIAL IVP PRN (18:50)
--- NOTE | 2019-03-10 19:09 | NUR ---
GAVE BEDSIDE REPORT TO MAURISIO KRISHNAN. PATIENT ENDORSED IN STABLE CONDITION
--- NOTE | 2019-03-10 19:10 | NUR ---
RECEIVED BEDSIDE REPORT FROM DAY RN. PT IS AAOX4 SOUTH AFRICAN SPEAKING ANDREW IS AT BEDSIDE. PT ON ROOM AIR RESPIRATIONS ARE EQUAL AND UNLABORED. SKIN IS INTACT. PT IS AMBULATORY. DENIES CHEST PAIN AT THIS TIME. LUNG SOUNDS CLEAR. 1ST TROP 0.080 NEXT LEVEL TO BE DRAWN AT 2300. PLAN OF CARE DISCUSSED WITH PT AND FAMILY. ORIENTED PT TO ROOM,STAFF,CALL LIGHT AND VISITING HOURS. CALL LIGHT IS WITHIN REACH. WILL ROUND FREQUENTLY.
[2019-03-10 20:00] VITALS: BP 182/79
[2019-03-10] MEDS ORDERED: ATORVASTATIN 20 MG TAB PO SCH (21:00)
[2019-03-10] MEDS: metFORMIN 500 MG TAB PO SCH (21:06)
[2019-03-10] MEDS: METOPROLOL 25 MG TAB PO SCH (21:06)
--- NOTE | 2019-03-10 21:06 | NUR ---
VS: 182/79 HR 70 99% 19 97.6 ORAL. SCHEDULED MEDICATIONS WERE GIVEN. ORDER FOR LOTENSIN 20MG PER CAP ORDERED DOSE IS 40MG OVERRIDE LOTENSIN 10MG PER TAB CHARGE NURSE AWARE. ADMINISTERED 4 TAB FOR TOTAL 40MG.
[2019-03-10] MEDS: NACL 0.9% 1,000 ML IV SCH (21:08)
[2019-03-10] MEDS ORDERED: metFORMIN 500 MG TAB ONE (21:09)
[2019-03-10] MEDS ORDERED: BENAZEPRIL 10 MG TAB ONE (21:10)
[2019-03-10] MEDS: BENAZEPRIL 20 MG TAB PO SCH (21:13)
[2019-03-10] MEDS ORDERED: MEDICATION REC. PHARMACY CONS. 1 EA MISC MC PRN (21:50)
--- NOTE | 2019-03-10 22:30 | NUR ---
PT RESTING COMFORTABLY IN BED WITH AND SON AT BEDSIDE. NO S/S OF DISTRESS. WILL CONTINUE TO MONITOR.
[2019-03-10] MEDS ORDERED: ATOR20TA PO (22:55)
[2019-03-10] MEDS ORDERED: INSULIN LISPRO SLIDING SCALE 100 UNITS/ML VIAL SUBQ PRN (23:40)
[2019-03-10] MEDS ORDERED: GLUCAGON 1 MG VIAL IVP PRN (23:40)
[2019-03-10] MEDS ORDERED: DEXTROSE 50% 50 ML SYR IVP PRN (23:40)
--- NOTE | 2019-03-10 23:53 | NUR ---
PAGED DR DUGAN FOR TRENDING UP TROP 0.117 NEW ORDER TO START HEPARIN DRIP. NO S/S OF DISTRESS. WILL CONTINUE TO MONITOR
[2019-03-10] MEDS ORDERED: HEPARIN PER PHARMACY MC PRN (23:55)
[2019-03-10] MEDS ORDERED: hePARIN / DEXT 5% PREMIX 250 ML IV SCH (23:55)
[2019-03-11] VITALS (7 sets, daily range): BP systolic 119–184; BP diastolic 57–80
--- NOTE | 2019-03-11 00:28 | NUR ---
PTT 23.0 INR 0.95 PLT 236. BOLUS OF 3000U GIVEN. HEPARIN DRIP AT 600U/H. DR DUGAN WILL ORDER PTT DRAW FOR 0630. WILL CONTINUE TO MONITOR.
[2019-03-11] MEDS: hePARIN / DEXT 5% PREMIX 250 ML IV SCH ×2 (00:29→08:30)
--- NOTE | 2019-03-11 01:50 | NUR ---
PT OFF UNIT TO RADIOLOGY. LEFT ON WHEEL CHAIR IN STABLE CONDITION.
--- NOTE | 2019-03-11 02:10 | NUR ---
PATIENT IS BACK AND RECONNECTED TO HEPARIN DRIP. ALL NEEDS MET AT THIS TIME. CALL LIGHT IS WITHIN REACH
--- NOTE | 2019-03-11 04:00 | NUR ---
VITAL SIGNS ARE WITHIN NORMAL LIMITS. PT DENIES ANY PAIN. SAFETY MEASURES ARE IN PLACE. CALL LIGHT IS WITHIN REACH.
--- NOTE | 2019-03-11 06:10 | NUR ---
BLOOD SUGAR 94 NO COVERAGE NEEDED. ALL NEEDS MET AT THIS TIME. WILL CONTINUE TO MONITOR.
[2019-03-11] MEDS: BLOOD GLUCOSE MONITORING 1 DEV DEV FS SCH ×4 (06:53→20:43)
[2019-03-11 07:06] LABS: CARBON DIOXIDE 24.4 mmol/L (21-32); CHLORIDE 103 mmol/L (98-107); CREATININE 0.7 mg/dL (0.6-1.3); GLUCOSE 98 mg/dL (74-106); POTASSIUM 3.4 mmol/L (3.5-5.1); SODIUM SERUM 137 mmol/L (136-145); UREA NITROGEN, BLOOD 14 mg/dL (7-18)
[2019-03-11 07:10] LABS: MAGNESIUM 1.8 mg/dL (1.8-2.4); PHOSPHORUS 3.9 mg/dL (2.5-4.9)
--- NOTE | 2019-03-11 07:10 | NUR ---
GAVE BEDSIDE REPORT TO DAY SHIFT RN. PT ENDORSED IN STABLE CONDITION.
[2019-03-11 07:19] LABS: BASOPHILS % (AUTO) 0.2 % (0.0-2.0); EOSINOPHILS # (AUTO) 0.2 K/uL (0-0.4); EOSINOPHILS % (AUTO) 2.7 % (0.0-4.0); HEMATOCRIT 35.8 % (36-48); HEMOGLOBIN 12.1 g/dL (12.0-16.0); LYMPHOCYTES # (AUTO) 2.3 K/uL (2.5-16.5); LYMPHOCYTES % (AUTO) 27.6 % (20.5-51.1); MEAN CORPUSCULAR HEMOGLOBIN 31 pg (27-31); MEAN CORPUSCULAR HGB CONC 34 g/dL (33-37); MEAN CORPUSCULAR VOLUME 90.8 fL (80-94); MONOCYTES # (AUTO) 0.6 K/uL (0.8-1.0); MONOCYTES % (AUTO) 6.7 % (1.7-9.3); NEUTROPHILS # (AUTO) 5.3 K/uL (1.8-7.7); NEUTROPHILS % (AUTO) 62.8 % (42.2-75.2); PLATELET COUNT (AUTO) 242 K/uL (140-450); RED BLOOD CELL COUNT(AUTO) 3.94 MIL/uL (4.20-5.40); RED CELL DISTRIBUTION WIDTH 14.3 % (11.6-13.7); WHITE BLOOD COUNT (AUTO) 8.4 K/uL (4.8-10.8)
--- NOTE | 2019-03-11 07:28 | NUR ---
REPORT RECEIVED FROM INVENTORY MANAGER NURSE, PT AAOX4, AT BEDSIDE, RESP EVEN UNALBORED, DENIES PAIN AT THIS TIME, POC REVIEWED, WILL CONTINUE TO MONITOR.
--- NOTE | 2019-03-11 08:09 | NUR ---
PATIENT HAS BEEN SCREENED AND CATEGORIZED MODERATE NUTRITION RISK. PATIENT WILL BE SEEN WITHIN 3-5 DAYS OF ADMISSION. 03/13/[address]
--- NOTE | 2019-03-11 08:30 | NUR ---
PTT 41.3, HEPARIN 1500U BOLUS, RATE INCREASED BY 100U/HR FROM 600 TO 700U/HR, NO S/S OF BLEEDING NOTED, DOUBLE RN VERIFIED.
[2019-03-11] MEDS: ASPIRIN 81 MG TAB.CHEW PO SCH (08:31)
[2019-03-11] MEDS: BENAZEPRIL 20 MG TAB PO SCH ×2 (08:31→21:00)
[2019-03-11] MEDS: metFORMIN 500 MG TAB PO SCH (08:31)
[2019-03-11] MEDS: METOPROLOL 25 MG TAB PO SCH ×2 (08:32→17:41)
[2019-03-11] MEDS: ACETAMINOPHEN 325 MG TAB PO PRN ×2 (09:22→14:01)
--- NOTE | 2019-03-11 11:22 | NUR ---
Received report from MAURISIO Grossman. Patient in stable condition, heparin drip running at 700 units/hr to right wrist 20 gauge catheter, no pain or discomfort at IV site. Mild 2/10 chest pain, patient does not want medicine for it at this time. instructed patient to use call light if pain worsens. patient resting in bed with no signs of distress, at bedside. Safety precautions in place, call light in reach. All needs met at this time.
[2019-03-11] MEDS: NACL 0.9% 1,000 ML IV SCH (13:32)
--- NOTE | 2019-03-11 13:33 | NUR ---
ADMINISTERED IV FLUID, PATIENT TOLERATING WELL. NO SIGNS OF DISTRESS ON RA. AT BEDSIDE. SAFETY PRECAUTIONS IN PLACE. WILL CONTINUE TO MONITOR.
--- NOTE | 2019-03-11 13:52 | NUR ---
PORT SURVEYOR note [phone]. Bedside swallow evaluation completed, please see report for details. PORT SURVEYOR provided pt and pt's family with education regarding purpose of PORT SURVEYOR's visit and rationale for recommendations. Pt verbalized agreement and understanding at this time. No family present at this time. Recommend: 1) regular textures 2) thin liquids 3) no further PORT SURVEYOR intervention indicated at this time. Physician may reorder if further concerns arise, as appropriate. PORT SURVEYOR d/w RN (Arianna) prior to and following bedside swallow evaluation completion. G-codes: [id number] [id number] [facility] NOMS level 7.
--- NOTE | 2019-03-11 14:03 | NUR ---
ADMINISTERED 650 MG PO TYLENOL FOR 3/10 BACK PAIN, PATIENT TOLERATED WELL. EVENTS TRAFFIC CONTROLLER AND AT BEDSIDE. ALL NEEDS MET AT THIS TIME. SAFETY PRECAUTIONS IN PLACE. WILL CONTINUE TO MONITOR.
--- NOTE | 2019-03-11 14:53 | NUR ---
DISCONTINUED HEPARIN DRIP PER ORDERED, PATIENT SHOWS NO SIGNS OF BLEEDING. PATIENT IS SCHEDULED FOR CT WITH CONTRAST BUT HAS BEEN GETTING METFORMIN. PER DOCTOR, HOLD METFORMIN FOR [address] UNTIL FURTHER NOTICE. DOCTOR TO PLACE ORDERS.
--- NOTE | 2019-03-11 15:30 | NUR ---
RECEIVED CALL FROM GERIATRIC NURSE PRACTITIONER WHO STATES THAT METFORMIN DOES NOT NEED TO BE HELD PRIOR TO IV CONTRAST BUT AFTER IV CONTRAST ADMINISTRATION. DIRECTED GERIATRIC NURSE PRACTITIONER TO SPEAK TO DOCTOR DIRECTLY. WILL FOLLOW UP WITH DOCTOR.
--- NOTE | 2019-03-11 15:30 | NUR ---
Boat Motor Mechanic Note: Assessment/Discharge Plan: I met with patient and patient's Presley Valadez at bedside. Both speak Yakut. Patient alert and oriented. I introduced myself to them and explained my role as a medical insurance verifier. They verbalized understanding. Patient lives at home with her family and plans to return home upon discharge. Patient's pcp is and . They cannot recall name of medical [facility]. She stated it is located in [place], [place] near [facility]. She does not have any difficulty filling her prescriptions from pharmacy. Presley checks patient's blood glucose levels. Patient and Presley sometimes walk together to medical clinic or their son Anton assist them with transportation. Patient does not have an existing Advance Directive. I provided patient and Presley with education on Advance Directive. Patient has had good communication with attending MD, resident MD, and nursing staff. They do not have any questions nor concerns at this time. I provided patient with my contact information. Boat Motor Mechanic and/or Director Federal will follow up as needed.
--- NOTE | 2019-03-11 16:20 | NUR ---
PER DOCTOR PATIENT WILL GO TO CT ONCE CONSENT IS SIGNED AND IV IS IN PLACE. METFORMIN WILL BE HELD FOR 48 HOURS AFTER IV CONTRAST.
--- NOTE | 2019-03-11 17:00 | NUR ---
OBTAINED CONSENT FOR IV CONTRAST USING [employer] #[id number]. PATIENT VERBALIZED UNDERSTANDING OF PROCEDURE AND INDICATED CONSENT. PATIENT WROTE INITIALS ON THE CONSENT FORM BECAUSE RIGHT ARM HAS [address] IN [address] AND SHE IS NOT COMFORTABLE WRITING AT THIS TIME. PATIENT VERBALIZED UNDERSTANDING TO REMAIN NPO UNTIL AFTER THE PROCEDURE AND REFRAIN FROM TAKING METFORMIN FOR 48 HOURS AFTER PROCEDURE.
--- NOTE | 2019-03-11 17:44 | NUR ---
ADMINISTERED 2100 DOSE OF METOPROLOL 25 MG PO FOR BP OF 184/80 AT THE DOCTOR'S INSTRUCTION. PATIENT IS DUE TO GO FOR CT WITH CONTRAST AND SEEMS NERVOUS. PATIENT IS READING HER YARSANISM TEXT AND FAMILY IS AT BEDSIDE FOR COMFORT. WILL REASSESS BP IN 30 MINUTES.
--- NOTE | 2019-03-11 19:10 | NUR ---
PATIENT BLOOD PRESSURE IS STILL ELEVATED, DOCTOR ADDED 10 MG HYDRALAZINE IV ONCE AND RESCHEDULED CT FOR TOMORROW. WILL ENDORSE PRN BP MEDICATION TO AUTOMOBILE LOCATOR TO ADMINISTER AND MONITOR.
--- NOTE | 2019-03-11 19:27 | NUR ---
GAVE REPORT TO METEOROLOGICAL OBSERVER RNEULOGIO. ENDORSING PATIENT WITH ELEVATED BP BUT IN STABLE CONDITION.
--- NOTE | 2019-03-11 19:28 | NUR ---
RECEIVED BEDSIDE REPORT FROM DAY RN. PT IS AAOX4 BRUNEIAN SPEAKING ANDREW AND SON ARE AT BEDSIDE. PT ON ROOM AIR RESPIRATIONS ARE EQUAL AND UNLABORED. SKIN IS INTACT. PT IS AMBULATORY WITH ASSIST. DENIES CHEST PAIN AT THIS TIME. LUNG SOUNDS CLEAR. LATEST TROP 0.109 HEPARIN DRIP D/C. PT WITH HIGH B/P PER RN 2100 B/P MEDS WERE ADMINISTERED B/P STILL ELEVATED NEW ORDER FOR PRN WILL RECHECK. PLAN OF CARE DISCUSSED WITH PT AND FAMILY.CALL LIGHT IS WITHIN REACH. WILL ROUND FREQUENTLY.
[2019-03-11] MEDS ORDERED: hydrALAZINE 20 MG/ML VIAL IVP SCH (19:30)
[2019-03-11] MEDS: ATORVASTATIN 20 MG TAB PO SCH (20:47)
--- NOTE | 2019-03-11 20:48 | NUR ---
SUKI MEDIATIONS GIVEN HELD LUIS M WILL ADMINISTER APRESOLINE IVP FOR B/P 171/73 HR 60. ALL SAFETY MEASURES ARE IN PLACE. CALL LIGHT IS WITHIN REACH. WILL CONTINUE TO MONITOR.
--- NOTE | 2019-03-11 21:50 | NUR ---
RECHECKED B/P 123/57 HR 73. ALL NEEDS MET AT THIS TIME. CALL LIGHT IS WITHIN REACH. WILL CONTINUE TO MONITOR.
[2019-03-12] VITALS: BP 120/51
--- NOTE | 2019-03-12 | NUR ---
VITAL SIGNS ARE WITHIN NORMAL LIMITS B/P 120/51 HR 72. PT DENIES PAIN. ALL NEEDS MET. CALL LIGHT IS WITHIN REACH.
--- NOTE | 2019-03-12 02:00 | NUR ---
ASSISTED PT TO BATHROOM PT WITH STEADY GAIT. DENIES ANY PAIN. ALL NEEDS MET AT THIS TIME. CALL LIGHT IS WITHIN REACH. WILL CONTINUE TO MONITOR.
[2019-03-12 04:00] VITALS: BP 147/65
--- NOTE | 2019-03-12 04:15 | NUR ---
VITAL SIGNS ARE WITHIN NORMAL LIMITS. ALL NEEDS MET AT THIS TIME. CALL LIGHT IS WITHIN REACH. WILL CONTINUE TO MONITOR.
[2019-03-12] MEDS: NACL 0.9% 1,000 ML IV SCH ×2 (04:48→21:40)
[2019-03-12] MEDS: BLOOD GLUCOSE MONITORING 1 DEV DEV FS SCH ×4 (05:50→20:45)
--- NOTE | 2019-03-12 07:24 | NUR ---
GAVE BEDSIDE REPORT TO DAY RN. PT ENDORSED IN STABLE CONDITION.
--- NOTE | 2019-03-12 07:25 | NUR ---
RECEIVED ERPORT FROM LABEL CUTTER RNEULOGIO. PATIENT RESTING IN BED WITH NO DISTRESS ON RA. SPEECH IS CLEAR, IV FLUID RUNNING AT 60 ML/HR TO RIGHT WRIST 20 GAUGE CATHETER. PATIENT ALSO HAS RIGHT AC 20 GAUGE CATHETER FOR PENDING CT SCAN WITH CONTRAST. PATIENT DENIES PAIN AT THIS TIME. BED LOW, CALL LIGHT IN REACH. ALL NEEDS MET AT THIS TIME.
[2019-03-12 08:00] VITALS: BP 161/68
[2019-03-12 08:12] LABS: BASOPHILS % (AUTO) 0.4 % (0.0-2.0); EOSINOPHILS # (AUTO) 0.1 K/uL (0-0.4); EOSINOPHILS % (AUTO) 1.4 % (0.0-4.0); HEMATOCRIT 36.1 % (36-48); HEMOGLOBIN 12.1 g/dL (12.0-16.0); LYMPHOCYTES % (AUTO) 39.5 % (20.5-51.1); MEAN CORPUSCULAR HEMOGLOBIN 31 pg (27-31); MEAN CORPUSCULAR HGB CONC 34 g/dL (33-37); MEAN CORPUSCULAR VOLUME 91.2 fL (80-94); MONOCYTES # (AUTO) 0.4 K/uL (0.8-1.0); MONOCYTES % (AUTO) 5.4 % (1.7-9.3); NEUTROPHILS # (AUTO) 4.1 K/uL (1.8-7.7); NEUTROPHILS % (AUTO) 53.3 % (42.2-75.2); PLATELET COUNT (AUTO) 246 K/uL (140-450); RED BLOOD CELL COUNT(AUTO) 3.96 MIL/uL (4.20-5.40); RED CELL DISTRIBUTION WIDTH 14.5 % (11.6-13.7); WHITE BLOOD COUNT (AUTO) 7.7 K/uL (4.8-10.8)
[2019-03-12 09:00] LABS: ANION GAP 11.4 (8-16); CARBON DIOXIDE 25.6 mmol/L (21-32); CHLORIDE 101 mmol/L (98-107); CREATININE 0.8 mg/dL (0.6-1.3); GLUCOSE 98 mg/dL (74-106); SODIUM SERUM 134 mmol/L (136-145); UREA NITROGEN, BLOOD 13 mg/dL (7-18)
[2019-03-12] MEDS: METOPROLOL 25 MG TAB PO SCH ×2 (09:54→20:42)
[2019-03-12] MEDS: ASPIRIN 81 MG TAB.CHEW PO SCH (09:55)
[2019-03-12] MEDS: BENAZEPRIL 20 MG TAB PO SCH ×2 (09:56→20:41)
--- NOTE | 2019-03-12 09:56 | NUR ---
ADMINISTERED SCHEDULED MEDICATIONS. PATIENT TOLERATED WELL. PATIENT IS C/O DISCOMFORT AT THE IV SITE IN RIGHT AC. SHE STATES IT IS ANNOYING AND DOESN'T LIKE IT THERE. CT ANGIO OF NECK AND CHEST IS DONE. WILL FOLLOW UP ON NEED FOR ADDITIONAL IMAGES.
[2019-03-12 10:10] LABS: MAGNESIUM 1.7 mg/dL (1.8-2.4); PHOSPHORUS 3.4 mg/dL (2.5-4.9)
--- NOTE | 2019-03-12 11:52 | NUR ---
CHANGED LEAD PLACEMENT DUE TO INVERTED T-WAVE ON MONITOR. T-WAVES ARE NOW UPRIGHT.
[2019-03-12 12:00] VITALS: BP 146/58
--- NOTE | 2019-03-12 12:39 | NUR ---
VITALS STABLE, GLUCOSE 116, NO COVERAGE NEEDED. FAMILY AT BEDSIDE. ALL NEEDS MET AT THIS TIME. BED LOW, CALL LIGHT IN REACH. IV INFUSING 60ML/HR TO RIGHT WRIST 20 GAUGE.
--- NOTE | 2019-03-12 13:44 | NUR ---
PATIENT RESTING IN BED WITH FAMILY AT BEDSIDE. NO C/O PAIN. NO SIGNS OF DISTRESS ON RA. ALL NEEDS MET AT THIS TIME.
[2019-03-12] MEDS ORDERED: MAGNESIUM OXIDE 400 MG TAB PO SCH (14:00)
--- NOTE | 2019-03-12 14:24 | NUR ---
ADMINISTERED SCHEDULED MEDICATIONS. EDUCATED PATIENT ON MEDICATION GIVEN. PATIENT TOLERATED WELL. IV FLUID IS INFUSING WELL TO RIGHT WRIST 20 GAUGE. FAMILY AT BEDSIDE. CALL LIGHT IN REACH. BED IN LOWEST POSITION.
[2019-03-12 16:00] VITALS: BP 149/62
--- NOTE | 2019-03-12 16:45 | NUR ---
PATIENT RESTING WITH FAMILY AT BEDSIDE. VITALS STABLE, NO DISTRESS NOTED. BED LOW, CALL LIGHT IN REACH. PATIENT ANXIOUS TO GO HOME.
--- NOTE | 2019-03-12 18:15 | NUR ---
PATIENT RELAXING IN BED, ALL NEEDS MET AT THIS TIME NO DISTRESS NOTED. FAMILY AT BEDSIDE. CALL LIGHT IN REACH.
--- NOTE | 2019-03-12 19:15 | NUR ---
GAVE REPORT TO ELECTRONIC SCALE SUBASSEMBLER NURSE. ENDORSING PATIENT IN STABLE CONDITION.
--- NOTE | 2019-03-12 19:20 | NUR ---
RECEIVED REPORT FORM DAY SHIFT NURSE. AAOX4. DENIES PAIN OR SOB. ON ROOM AIR. IV TO RIGHT WRIST #20G, NS AT 60 ML/HR, INFUSING WELL AND RIGHT AC #20G, SALINE LOCK. SKIN INTACT. DISCUSSED PLAN OF CARE, PT AND FAMILY VERBALIZED UNDERSTANDING. SAFETY PRECAUTION IN PLACE. CALL LIGHT WITHIN REACH.
[2019-03-12 20:00] VITALS: BP 153/67
[2019-03-12] MEDS: ATORVASTATIN 20 MG TAB PO SCH (20:41)
--- NOTE | 2019-03-12 21:00 | NUR ---
DUE MEDS GIVEN. PT TOLERATED WELL. ALL NEEDS ATTENDED AT THIS TIME. FAMILY AT BEDSIDE.
--- NOTE | 2019-03-12 23:30 | NUR ---
PT C/O PAIN ON RIGHT AC IV SITE. REMOVED IV CANNULA. TIP INTACT. ALL NEEDS MET AT THIS TIME. CALL LIGHT WITHIN REACH.
[2019-03-13] VITALS: BP 156/63
--- NOTE | 2019-03-13 01:45 | NUR ---
PT RESTING IN BED WITH EYES CLOSED. NO S/S OF RESP DISTRESS. NO S/S OF PAIN OR DISCOMFORT. CALL LIGHT WITHIN REACH.
--- NOTE | 2019-03-13 03:30 | NUR ---
PT SLEEPING, EASILY AROUSABLE. RESP EVEN AND UNLABORED. NO S/S OF PAIN OR DISCOMFORT.
[2019-03-13 04:00] VITALS: BP 155/62
--- NOTE | 2019-03-13 04:39 | NUR ---
ASSISTED PT TO BATHROOM AND BACK TO BED. DENIES PAIN OR SOB. ALL NEEDS ATTENDED AT THIS TIME. SAFETY PRECAUTION IN PLACE. CALL LIGHT WITHIN REACH.
--- NOTE | 2019-03-13 06:10 | NUR ---
BLOOD SUGAR CHECKED 103. PT DENIES PAIN OR SOB. CALL LIGHT WITHIN REACH.
[2019-03-13] MEDS: BLOOD GLUCOSE MONITORING 1 DEV DEV FS SCH ×2 (06:15→11:30)
--- NOTE | 2019-03-13 07:05 | NUR ---
RECEIVED REPORT FROM GREEN TIRE INSPECTOR NURSE. PATIENT IS RESTING IN BED. NO S/S OF RESP DISTRESS, NO COMPLAINTS FROM THE PATIENT AT THIS MOMENT. PATIENT IS ON ROOM AIR. A&OX4. IV TO RIGHT WRIST WITH NS RUNNING AT 60ML/HR. WILL CONTINUE TO MONITOR.
--- NOTE | 2019-03-13 07:10 | NUR ---
ENDORSED PT TO DAY SHIFT NURSE. PT IN STABLE CONDITION.
[2019-03-13 08:00] VITALS: BP 155/60
[2019-03-13 08:02] LABS: BASOPHILS % (AUTO) 0.2 % (0.0-2.0); EOSINOPHILS # (AUTO) 0.1 K/uL (0-0.4); EOSINOPHILS % (AUTO) 2.1 % (0.0-4.0); HEMATOCRIT 33.2 % (36-48); HEMOGLOBIN 11.2 g/dL (12.0-16.0); LYMPHOCYTES # (AUTO) 2.6 K/uL (2.5-16.5); MEAN CORPUSCULAR HEMOGLOBIN 31 pg (27-31); MEAN CORPUSCULAR HGB CONC 34 g/dL (33-37); MONOCYTES # (AUTO) 0.4 K/uL (0.8-1.0); MONOCYTES % (AUTO) 6.7 % (1.7-9.3); NEUTROPHILS # (AUTO) 3.3 K/uL (1.8-7.7); PLATELET COUNT (AUTO) 216 K/uL (140-450); RED BLOOD CELL COUNT(AUTO) 3.65 MIL/uL (4.20-5.40); RED CELL DISTRIBUTION WIDTH 14.7 % (11.6-13.7); WHITE BLOOD COUNT (AUTO) 6.5 K/uL (4.8-10.8)
[2019-03-13] MEDS: METOPROLOL 25 MG TAB PO SCH (08:26)
[2019-03-13] MEDS: BENAZEPRIL 20 MG TAB PO SCH (08:26)
[2019-03-13] MEDS: ASPIRIN 81 MG TAB.CHEW PO SCH (08:26)
[2019-03-13 08:33] LABS: ANION GAP 10.8 (8-16); CHLORIDE 106 mmol/L (98-107); CREATININE 0.7 mg/dL (0.6-1.3); GLUCOSE 91 mg/dL (74-106); POTASSIUM 3.8 mmol/L (3.5-5.1); SODIUM SERUM 138 mmol/L (136-145); UREA NITROGEN, BLOOD 11 mg/dL (7-18)
--- NOTE | 2019-03-13 10:00 | NUR ---
PATIENT IS RESTING QUIETLY IN BED. NO S/S OF RESPIRATORY DISTRESS. WILL CONTINUE TO MONITOR
[2019-03-13] MEDS ORDERED: METO25TA PO (10:18)
--- NOTE | 2019-03-13 11:22 | NUR ---
ASSISTED PATIENT WITH STANDBY TO USE THE RESTROOM. PATIENT TOLERATED WELL. NO SOB. PATIENT IS BACK IN BED RESTING, FAMILY AT BEDSIDE.
[2019-03-13 12:00] VITALS: BP 137/54
--- NOTE | 2019-03-13 12:01 | NUR ---
PATIENT AND FAMILY MEMBER MADE AWARE OF PATIENTS ORDERS FOR DISCHARGE. WILL BEGIN TO IMPLEMENT PAPERWORK AND PROVIDE DISCHARGE TEACHING.
[2019-03-13] MEDS: NACL 0.9% 1,000 ML IV SCH (12:11)
--- NOTE | 2019-03-13 13:30 | NUR ---
AT BEDSIDE GIVING DISCHARGE INSTRUCTIONS AND EDUCATION ON PATIENTS DISEASE PROCESS AND MEDICATION. PATIENTS FAMILY MEMBERS PRESENT FOR THE INSTRUCTIONS.
--- NOTE | 2019-03-13 14:15 | NUR ---
PATIENT WAS DISCHARGED TO HOME. IV CATHETER WAS REMOVED AND INTACT. EKG WAS REMOVED FROM PATIENTS CHEST. PATIENT CHANGED INTO PERSONAL CLOTHING. PATIENT TOLERATED WELL, NO COMPLAINTS OF PAIN PRIOR TO DISCHARGE. PATIENT WAS WHEELED TO THE FRONT OF THE HOSPITAL AND FAMILY MEMBER BROUGHT THE CAR UP FRONT.
[2019-03-13 16:35] LABS: MAGNESIUM 1.8 mg/dL (1.8-2.4); PHOSPHORUS 3.5 mg/dL (2.5-4.9)
== END 2019-03-13 14:50 | disposition home or self-care (01) | DRG 205 ==
LOC: MED 14:50 → MTU 17:36
PROVIDERS: ADMIT General Practice; ATTEND General Practice
DX: M94.0 Chondrocostal junction syndrome [Tietze] (principal); I21.A1 Myocardial infarction type 2; E87.1 Hypo-osmolality and hyponatremia; M54.12 Radiculopathy, cervical region; E83.42 Hypomagnesemia; E87.6 Hypokalemia; E78.5 Hyperlipidemia, unspecified
CPT/HCPCS: 36415; 71045; 71275; 72040; 73030; 80048; 80053; 81003; 82150; 82550; 82948; 83036; 83605; 83690; 83735; 83880; 84100; 84439; 84443; 84484; 85025; 85610; 85730; 87040; 87081; 87086; 92610; 93005; 96360; 96361; 97116; 97161-GP; 99285; J0360; J1644; J7030; Q0092; Q9967

== ENCOUNTER 2023-04-04 12:05 | Inpatient (IN) | payer OTHER ==
[2023-04-04] VITALS: BP 134/57; PULSE 57; RESP 18; TEMP 96.8; O2SAT 97
[~2023-04-04] VITALS: Ht 137.2 cm; Wt 50.8 kg
[~2023-04-04 12:05] MED LIST changes: -ASPI-1173 PO; +ASPI-1856 PO; +ATOR20TA PO; -ATOR40TA PO; -METF500T2 PO; +METO25TA PO; -METO50TE2 PO
[2023-04-04 12:30] VITALS: BP 126/57; PULSE 81; RESP 16; TEMP 97.2; O2SAT 99
[2023-04-04] MEDS ORDERED: ALUMINUM HYD/MAG/SIMETHICONE 30 ML UDC PO ONE (13:15)
[2023-04-04] MEDS ORDERED: ACETAMINOPHEN EXTRA STRENGTH 500 MG TAB PO ONE (13:15)
[2023-04-04] MEDS ORDERED: ONDANSETRON 4 MG ODT PO ONE (13:15)
[2023-04-04 13:36] LABS: BASOPHILS % (AUTO) 0.3 % (0.0-2.0); EOSINOPHILS % (AUTO) 0.8 % (0.0-4.0); HEMATOCRIT 37.8 % (36-48); HEMOGLOBIN 13.3 g/dL (12.0-16.0); LYMPHOCYTES # (AUTO) 1.4 K/uL (2.5-16.5); LYMPHOCYTES % (AUTO) 21.8 % (20.5-51.1); MEAN CORPUSCULAR HEMOGLOBIN 31 pg (27-31); MEAN CORPUSCULAR HGB CONC 35 g/dL (33-37); MEAN CORPUSCULAR VOLUME 89.2 fL (80-94); MONOCYTES # (AUTO) 0.4 K/uL (0.8-1.0); MONOCYTES % (AUTO) 6.3 % (1.7-9.3); NEUTROPHILS # (AUTO) 4.6 K/uL (1.8-7.7); NEUTROPHILS % (AUTO) 70.8 % (42.2-75.2); PLATELET COUNT (AUTO) 166 K/uL (140-450); RED BLOOD CELL COUNT(AUTO) 4.23 MIL/uL (4.20-5.40); RED CELL DISTRIBUTION WIDTH 13.7 % (11.6-13.7); WHITE BLOOD COUNT (AUTO) 6.5 K/uL (4.8-10.8)
[2023-04-04 13:53] LABS: ALANINE AMINOTRANSFERASE 30 U/L (12-78); ALBUMIN 3.9 g/dL (3.4-5.0); ALKALINE PHOSPHATASE 135 U/L (50-136); ANION GAP 12.6 (8-16); ASPARTATE AMINOTRANSFERASE 23 U/L (15-37); CARBON DIOXIDE 27.7 mmol/L (21-32); CHLORIDE 96 mmol/L (98-107); CREATININE 1.3 mg/dL (0.6-1.3); LIPASE 304 U/L (73-393); POTASSIUM 3.3 mmol/L (3.5-5.1); SODIUM SERUM 133 mmol/L (136-145); TOTAL BILIRUBIN 1.7 mg/dL (0.0-1.0); TOTAL PROTEIN, SERUM 7.1 g/dL (6.4-8.2); UREA NITROGEN, BLOOD 18 mg/dL (7-18)
[2023-04-04 13:54] LABS: GLUCOSE 687 mg/dL (74-106)
[2023-04-04] MEDS ORDERED: ASPIRIN 81 MG TAB.CHEW PO ONE (14:05)
[2023-04-04] MEDS ORDERED: NACL 0.9% 1,000 ML IV ONE (14:05)
[2023-04-04] MEDS ORDERED: POTASSIUM CHLORIDE 10 MEQ TABER PO ONE (14:50)
[2023-04-04] MEDS ORDERED: INSULIN REGULAR, HUMAN 100 UNIT/ML VIAL IVP ONE (14:50)
[2023-04-04] MEDS ORDERED: ACETAMINOPHEN 325 MG TAB PO PRN (15:45)
[2023-04-04] MEDS ORDERED: ONDANSETRON 4 MG/2 ML VIAL IVP PRN (15:45)
[2023-04-04] MEDS ORDERED: MORPHINE SULFATE 2 MG/ML SYR IVP PRN (15:45)
[2023-04-04] MEDS ORDERED: LORazepam 2 MG/ML VIAL IVP PRN (15:45)
[2023-04-04] MEDS ORDERED: DEXTROSE 50% 50 ML SYR IVP PRN (15:45)
[2023-04-04 15:52] LABS: INR 1.02 (0.8-1.2); PARTIAL THROMBOPLASTIN TIME 24.3 secs (22-35.6); PROTHROMBIN TIME 10.7 secs (10.8-13.4)
[2023-04-04] MEDS: BLOOD GLUCOSE MONITORING 1 DEV DEV FS SCH ×2 (16:25→20:47)
[2023-04-04] MEDS ORDERED: INSULIN REGULAR, HUMAN 100 UNIT/ML VIAL SUBQ ONE ×2 (17:25→17:55)
[2023-04-04] MEDS: INSULIN LISPRO SLIDING SCALE 100 UNITS/ML VIAL SUBQ PRN ×2 (20:10→22:26)
[2023-04-04] MEDS ORDERED: INSULIN LANTUS 100 UNITS/ML 10 ML VIAL SUBQ SCH (21:00)
[2023-04-04] MEDS ORDERED: CALC-575 PO (21:22)
[2023-04-04] MEDS ORDERED: RYT150 PO (21:22)
[2023-04-04] MEDS ORDERED: CHOL500040 PO (21:22)
[2023-04-04] MEDS ORDERED: AMLO10TA PO (21:22)
[2023-04-04 21:35] VITALS: PULSE 57; RESP 18; O2SAT 97
[2023-04-05] VITALS: BP 138/48; PULSE 53; PULSE 62; RESP 18; TEMP 97.1; O2SAT 93
[2023-04-05 04:00] VITALS: BP 138/48; PULSE 62; PULSE 67; RESP 18; TEMP 97.1; O2SAT 93
[2023-04-05 06:05] LABS: BASOPHILS % (AUTO) 0.1 % (0.0-2.0); EOSINOPHILS % (AUTO) 0.1 % (0.0-4.0); HEMATOCRIT 39.6 % (36-48); HEMOGLOBIN 14.1 g/dL (12.0-16.0); LYMPHOCYTES # (AUTO) 1.2 K/uL (2.5-16.5); LYMPHOCYTES % (AUTO) 12.4 % (20.5-51.1); MEAN CORPUSCULAR HEMOGLOBIN 32 pg (27-31); MEAN CORPUSCULAR HGB CONC 36 g/dL (33-37); MEAN CORPUSCULAR VOLUME 88.6 fL (80-94); MONOCYTES # (AUTO) 0.4 K/uL (0.8-1.0); NEUTROPHILS # (AUTO) 7.9 K/uL (1.8-7.7); NEUTROPHILS % (AUTO) 83.4 % (42.2-75.2); PLATELET COUNT (AUTO) 196 K/uL (140-450); RED BLOOD CELL COUNT(AUTO) 4.47 MIL/uL (4.20-5.40); RED CELL DISTRIBUTION WIDTH 14.4 % (11.6-13.7); WHITE BLOOD COUNT (AUTO) 9.5 K/uL (4.8-10.8)
[2023-04-05 06:32] LABS: ALANINE AMINOTRANSFERASE 34 U/L (12-78); ALBUMIN 3.8 g/dL (3.4-5.0); ALKALINE PHOSPHATASE 123 U/L (50-136); ANION GAP 14.8 (8-16); ASPARTATE AMINOTRANSFERASE 27 U/L (15-37); CALCIUM 8.8 mg/dL (8.5-10.1); CARBON DIOXIDE 25.3 mmol/L (21-32); CHLORIDE 108 mmol/L (98-107); CREATININE 0.8 mg/dL (0.6-1.3); GLUCOSE 83 mg/dL (74-106); POTASSIUM 3.1 mmol/L (3.5-5.1); SODIUM SERUM 145 mmol/L (136-145); TOTAL PROTEIN, SERUM 7.1 g/dL (6.4-8.2); UREA NITROGEN, BLOOD 10 mg/dL (7-18)
[2023-04-05] MEDS: BLOOD GLUCOSE MONITORING 1 DEV DEV FS SCH ×2 (07:30→11:46)
[2023-04-05 08:00] VITALS: BP 149/56; PULSE 73; PULSE 84; RESP 17; TEMP 97.7; O2SAT 98
[2023-04-05] MEDS ORDERED: POTASSIUM CHLORIDE 10 MEQ TABER PO ONE (11:15)
[2023-04-05] MEDS: POTASSIUM CHLORIDE 10 MEQ TABER PO SCH ×2 (11:46→14:50)
[2023-04-05] MEDS: INSULIN LISPRO SLIDING SCALE 100 UNITS/ML VIAL SUBQ PRN (11:51)
[2023-04-05 12:00] VITALS: BP 144/66; PULSE 70; PULSE 76; RESP 17; TEMP 97.2; O2SAT 97
[2023-04-05] MEDS ORDERED: PANT40EC PO (12:04)
[2023-04-05] MEDS ORDERED: GLIP5TER PO (12:04)
[2023-04-05 15:02] VITALS: BP 144/66; PULSE 76; RESP 17; TEMP 97.2
== END 2023-04-05 15:40 | disposition home or self-care (01) | DRG 637 ==
LOC: MED 12:05 → MMU 15:44 → MTU 15:44
PROVIDERS: ADMIT Hospitalist; ATTEND Hospitalist
DX: E11.00 Type 2 diabetes mellitus with hyperosmolarity without nonketotic hyperglycemic-hyperosmolar coma (NKHHC) (principal); I21.A1 Myocardial infarction type 2; E87.1 Hypo-osmolality and hyponatremia; K21.9 Gastro-esophageal reflux disease without esophagitis; I10 Essential (primary) hypertension; E11.65 Type 2 diabetes mellitus with hyperglycemia; K29.70 Gastritis, unspecified, without bleeding; R10.13 Epigastric pain; Z79.899 Other long term (current) drug therapy; Z79.82 Long term (current) use of aspirin
CPT/HCPCS: 36415; 80053; 82803; 82948; 83036; 83690; 83735; 84484; 85025; 85610; 85730; 87081; 93005; 93970; 96360; 99291; J1815; Q0092; Q0162